=== PATIENT | male | born 1960 | race Caucasian/White ===

== ENCOUNTER → 2024-11-12 | Outpatient (CLI) | payer OTHER ==
[~2024-11-12] MED LIST: ASPI1TAB22 PO; BACTDSTA PO; CLOP75TA2 PO; CYCL5TAB4 PO; DOCU100C16; ELIQ5TAB PO; GABA-1171 PO; HYDR-3363 PO; HYDR500C20 PO; HYDR500C3 PO; LIDOCAINE 1% MDV 20 ML VIAL As Ordered ONE; LIDOCAINE 1% MDV 20 ML VIAL SC SCH; MIRT1TAB PO; PERCOCET PO; SANT250O8 TOP
[2024-11-12 08:35] VITALS: TEMP 98
[2024-11-12 09:26] LABS: BASO # 0.1 10^3/uL (0.0-0.2); BASO % 0.8 % (0.0-1.0); EOS # 0.3 10^3/uL (0.0-0.5); EOS % 4.3 % (0.0-3.0); LYMPH # 1.0 10^3/uL (1.5-5.0); LYMPH % 16.8 % (24.0-44.0); MONO # 0.5 10^3/uL (0.0-0.8); MONO % 7.5 % (2.0-8.0); NEUTROPHILS # 4.2 10^3/uL (1.5-8.5); NEUTROPHILS % 70.1 % (36.0-66.0); PLATELET COUNT, AUTOMATED 366 10^3/uL (150-450)
[2024-11-12 09:40] VITALS: BP 126/73; O2SAT 99
[2024-11-12] MEDS: LIDOCAINE 1% MDV 20 ML VIAL SC SCH (10:55)
== END ==
LOC: M IRPRO 08:10
PROVIDERS: ATTEND Internal Medicine Hematology & Oncology
DX: D47.3 Essential (hemorrhagic) thrombocythemia (principal)